=== PATIENT | male | born 1975 | race Caucasian/White ===

== ENCOUNTER 2018-08-21 11:53 | Emergency (ER) | payer BC, OTHER ==
[~2018-08-21] VITALS: Ht 167.6 cm; Wt 63.2 kg
[~2018-08-21 11:53] MED LIST: FAMO-1 PO; OMEG-79 PO; PRED20TA PO; [UNRECOGNIZED DRUG - CODE] TP
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
--- NOTE | 2018-08-21 13:24 | NUR ---
telepsych initiated, camera in the room
[2018-08-21 13:30] LABS: ALANINE AMINOTRANSFERASE 26 U/L (12-78); ALBUMIN/GLOBULIN RATIO 1.1 (1.1-1.5); ALKALINE PHOSPHATASE 60 IU/L (46-116); ANION GAP 9 (8-16); ASPARTATE AMINO TRANSFERASE 14 U/L (10-37); BILIRUBIN,TOTAL 0.4 MG/DL (0.1-1.0); BLOOD UREA NITROGEN 12 MG/DL (7-18); CALCIUM 9.1 MG/DL (8.5-10.1); CHLORIDE 103 MMOL/L (99-107); GLUCOSE 130 MG/DL (70-104); POTASSIUM 3.6 MMOL/L (3.5-5.1); SODIUM 142 MMOL/L (135-145); TOTAL CARBON DIOXIDE 29.7 MMOL/L (24-32); TOTAL PROTEIN 7.6 G/DL (6.4-8.2); eGFR > 90 ML/MIN
[2018-08-21 13:38] LABS: BASOPHILS % (AUTO) 0.1 % (0-1); EOSINOPHILS # (AUTO) 0.2 X10'3 (0-0.9); EOSINOPHILS % (AUTO) 2.2 % (0-6); HEMATOCRIT 48.9 % (42.0-52.0); HEMOGLOBIN 16.5 g/dl (14.0-17.9); LYMPHOCYTES # (AUTO) 1.3 X10'3 (1.1-4.8); LYMPHOCYTES % (AUTO) 18.2 % (21-51); MEAN CORPUSCULAR HEMOGLOBIN 30.9 PG (27.0-31.0); MEAN CORPUSCULAR HGB CONC 33.8 % (33.0-36.5); MEAN CORPUSCULAR VOLUME 91.5 FL (78-98); MEAN PLATELET VOLUME 10.1 FL (7.4-10.4); MONOCYTES # (AUTO) 0.5 X10'3 (0-0.9); MONOCYTES % (AUTO) 6.9 % (2-12); NEUTROPHILS # (AUTO) 5.2 X10'3 (1.8-7.7); NEUTROPHILS % (AUTO) 72.6 % (42-75); PLATELET COUNT 205 X10'3 (140-440); RED BLOOD COUNT 5.35 X10'6 (4.70-6.10); RED CELL DISTRIBUTION WIDTH 13.9 % (11.5-14.5); WHITE BLOOD COUNT 7.2 X10'3 (4.5-11.0)
[2018-08-21 13:39] LABS: ETHANOL < 0.010 GM/DL (0.0-0.010)
--- NOTE | 2018-08-21 14:19 | NUR ---
gave report to provider, urine sample sent to lab
[2018-08-21] MEDS ORDERED: NO HOME MEDS (14:21)
--- NOTE | 2018-08-21 14:31 | NUR ---
pt is being evaluated by teletawana DAVIES
[2018-08-21 14:55] LABS: URINE AMPHETAMINE SCREEN NEGATIVE (Neg); URINE BARBITUATE SCREEN NEGATIVE (Neg); URINE BENZODIAZEPINES SCREEN NEGATIVE (Neg); URINE CANNABINOID SCREEN POSITIVE (Neg); URINE COCAINE SCREEN NEGATIVE (Neg); URINE METHADONE SCREEN NEGATIVE (Neg); URINE OPIATE SCREEN NEGATIVE (Neg); URINE PHENCYCLIDINE SCREEN NEGATIVE (Neg)
--- NOTE | 2018-08-21 15:08 | NUR ---
teleneuro consult initiated
--- NOTE | 2018-08-21 16:31 | NUR ---
pt has had tele neuro consult, needs reevaluation by telepsych, report given to Paige EDWARDS, pt moved to overflow, continues to denies suicidal/homicidal thought
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
--- NOTE | 2018-08-21 16:39 | NUR ---
called to reinitiate telepsych, was told that Sierra from here had already called them
--- NOTE | 2018-08-21 16:44 | NUR ---
pt is anxiously awaiting telepsych, standing beside bed,
--- NOTE | 2018-08-21 17:46 | NUR ---
pt is standing by the bed awaiting telepsych
[2018-08-21 17:53] VITALS: BP 137/91
--- NOTE | 2018-08-21 20:01 | NUR ---
called telpsych, spoke to triny, he states pt is still in the Q and will try to expidite consult
--- NOTE | 2018-08-21 20:05 | NUR ---
dispatcher came on the telemonitor, spoke to pt, he says he will give them 5 mins and then he's out of here, spoke to provider Zelalem, she is doing his discharge paperwork
== END 2018-08-21 20:50 | disposition home or self-care (01) ==
LOC: ER 11:53
DX: F22 Delusional disorders (principal); F12.10 Cannabis abuse, uncomplicated; R51 Headache; R07.89 Other chest pain
CPT/HCPCS: 36415; 70450; 80053; 80305; 80320; 84443; 85025; 99284

== ENCOUNTER 2023-10-19 03:38 | Emergency (ER) | payer BC ==
[~2023-10-19] VITALS: Ht 167.6 cm; Wt 69.5 kg
[~2023-10-19 03:38] MED LIST changes: -FAMO-1 PO; +NO HOME MEDS; -OMEG-79 PO; -PRED20TA PO; -[UNRECOGNIZED DRUG - CODE] TP
[2023-10-19 04:59] LABS: BILIRUBIN,URINE SMALL (Neg); CLARITY,URINE SLIGHTLY CLOUDY (Clear); COLOR,URINE STRAW (Yellow); GLUCOSE, URINE NEGATIVE (Neg); KETONES,URINE >=80 mg/dl (Neg); LEUKOCYTE ESTERASE ,URINE NEGATIVE (Neg); NITRITES, URINE NEGATIVE (Neg); OCCULT BLOOD,URINE NEGATIVE (Neg); PROTEIN,URINE NEGATIVE (Neg); UROBILINOGEN,URINE 0.2 E.U/dL (0.2-1.0)
[2023-10-19 05:03] LABS: UA COLLECTION TYPE CLN CATCH MIDSTREAM
[2023-10-19 05:05] LABS: CELLULAR CAST 0-4 /LPF (NEGATIVE); FINE GRANULAR CAST 0-3 /LPF (NEGATIVE); HYALINE CASTS 0-3 /LPF (NEGATIVE); SQUAMOUS EPITHELIAL CELL,UR FEW /LPF (FEW)
[2023-10-19 05:06] LABS: MUCUS STRANDS MODERATE /LPF (Neg)
[2023-10-19 05:07] LABS: BACTERIA,URINE 2+ /HPF (Neg); CAL OXALATE CRYSTALS FEW /HPF (NEGATIVE); WBC,URINE 0-4 /HPF (0-4)
[2023-10-19 05:19] LABS: ALANINE AMINOTRANSFERASE 40 U/L (12-78); ALBUMIN 4.8 G/DL (3.4-5.0); ALBUMIN/GLOBULIN RATIO 1.2 (1.1-1.5); ALKALINE PHOSPHATASE 73 IU/L (46-116); ANION GAP 19 (8-16); BLOOD UREA NITROGEN 14 MG/DL (7-18); BUN/CREATININE RATIO 16.3 (10.0-20.0); CALCIUM 9.4 MG/DL (8.5-10.1); CHLORIDE 101 MMOL/L (99-107); CREATININE 0.86 MG/DL (0.60-1.10); GLUCOSE 72 MG/DL (70-104); LIPASE 43 U/L (16-77); SODIUM 140 MMOL/L (135-145); TOTAL CARBON DIOXIDE 19.7 MMOL/L (24-32); TOTAL PROTEIN 8.9 G/DL (6.4-8.2); eCRCL 96 ML/MIN; eGFR > 90 ML/MIN
[2023-10-19 05:22] LABS: ASPARTATE AMINO TRANSFERASE 21 U/L (10-37); POTASSIUM 4.4 MMOL/L (3.5-5.1)
[2023-10-19 06:18] LABS: BASOPHILS % (AUTO) 0.4 % (0-1); EOSINOPHILS # (AUTO) 0.1 X10'3 (0-0.9); MEAN PLATELET VOLUME 9.9 FL (7.4-10.4); RED CELL DISTRIBUTION WIDTH 13.1 % (11.5-14.5)
[2023-10-19 06:22] LABS: HEMOGLOBIN 17.9 g/dl (14.0-17.9); LYMPHOCYTES % (AUTO) 15.2 % (21-51); MEAN CORPUSCULAR HEMOGLOBIN 31.6 PG (27.0-31.0); MEAN CORPUSCULAR HGB CONC 34.4 g/dL (33.0-36.5); MEAN CORPUSCULAR VOLUME 91.8 FL (78-98); MONOCYTES # (AUTO) 0.4 X10'3 (0-0.9); MONOCYTES % (AUTO) 6.7 % (2-12); NEUTROPHILS % (AUTO) 76.7 % (42-75); PLATELET COUNT 181 X10'3 (140-440); RED BLOOD COUNT 5.66 X10'6 (4.70-6.10); WHITE BLOOD COUNT 6.6 X10'3 (4.5-11.0)
[2023-10-19 08:25] VITALS: TEMP 97.9
[2023-10-19] MEDS ORDERED: IBUP-1985 PO (09:34)
[2023-10-19] MEDS ORDERED: CLIN300C3 PO (09:34)
[2023-10-19 09:43] VITALS: BP 125/85; PULSE 84; RESP 16; O2SAT 99
== END 2023-10-19 09:44 | disposition home or self-care (01) ==
LOC: ER 03:39
DX: I88.8 Other nonspecific lymphadenitis (principal); F10.90 Alcohol use, unspecified, uncomplicated; F12.90 Cannabis use, unspecified, uncomplicated; Z79.1 Long term (current) use of non-steroidal anti-inflammatories (NSAID); Z79.899 Other long term (current) drug therapy
CPT/HCPCS: 36415; 80053; 81001; 83690; 85025; 99283